=== PATIENT | female | born 1955 | race Caucasian/White ===

== ENCOUNTER → 2017-12-09 | Outpatient (CLI) | payer BC ==
[~2017-12-09] MED LIST: CHILDREN'S ASPI81 M1 PO; FAMCYCLOVIR 50500 M1 PO; GEMFIBROZIL 60600 MG PO; IBUPROFEN 800800 M1 PO; LOVASTATIN 20 M20 MG PO; MINOCYCLINE HC100 M2 PO; SKELAXIN 800 M800 M1 PO; XANAX 0.25 MG0.25 MG PO
[2017-12-09 10:25] LABS: HEMATOCRIT 39.4 % (37.0-47.0); HEMOGLOBIN 13.3 gm/dL (12.0-15.0); MCH 31.8 pg (26.0-34.0); MCHC 33.9 g/dL (28.0-37.0); MPV 6.9 fl. (7.2-11.1); RBC 4.19 mil/uL (4.20-5.00); RDW-CV 13.8 % (10.5-14.5); WBC 6.5 thou/uL (4.0-11.0)
[2017-12-09 10:49] LABS: BF RBC 1961 /mm3; TOTAL CELL COUNT 441 /mm3
[2017-12-09 10:52] LABS: CLARITY SLIGHTLY HAZY; COLOR YELLOW; SOURCE R KNEE; TOTAL VOLUME 20 ml
[2017-12-09 10:55] LABS: BF LYMPHOCYTES 83 %; BF MONOCYTES 4 %; BF POLYS 13 %; BF TISSUE 5 /100 WBC
[2017-12-09 11:23] LABS: SOURCE R KNEE
--- NOTE | 2017-12-09 13:15 | S ---
[place] [address] SURGICAL PATH RPT PROCEDURE Name: PASCALE CABRERA Room: [facility].Kortney.#: [id number] Admission: 12/09/17 Date of : 55 Discharge: Report #: [id number] Path Case #: [id number] PATHOLOGY REPORT COLLECTION DATE: 12/09/2017 RECEIVED DATE: 12/09/2017 SUBMITTING PHYS: Dr. Meng Miguel OTHER PHYS: Dr. Alma Rosa Curry SPECIMEN(S) RECEIVED: A.Right knee fluid * * * * * * * * * * * * FINAL DIAGNOSIS: Right knee fluid: - No pathologic crystals identified. (DAVID:keith; 12/09/2017) PATHOLOGIST: Jose Lae M.D. REPORT ELECTRONICALLY SIGNED BY: Jose Lea M.D. DATE/TIME: 12/09/2017 12:59 * * * * * * * * * * * * GROSS PATHOLOGY: Received for cell count, chemistries, cultures, and crystal analysis is approximately 20 cc of slightly hazy yellow fluid in a syringe labeled, "Pascale Cabrera, RT knee". For crystal analysis, a WetPrep is prepared and subsequently examined using cross polarized microscopy. (DAVID:keith; 12/09/2017) CLINICAL HISTORY: None Provided INITIAL CPT CODE(S): A; 03117 Professional services performed [place] [address] Technical services performed by [facility] at [address] [place] [address]., [address] [address]. [facility] [address] [place] [address] SURGICAL PATH RPT PROCEDURE Name: PASCALE CABRERA [id number] Admission: 12/09/17 Date of : 55 Discharge: Report #: [id number] Path Case #: [id number] [address] PHONE: [phone] DIRECTOR: Pedro Virk M.D. * * * END OF REPORT * * *
[2017-12-10 08:47] LABS: SOURCE RIGHT KNEE
[2017-12-10 11:12] LABS: BODY FLUID PROTEIN 4.2 g/dL (())
[2017-12-11 09:08] LABS: ANA INTERPRETATION Negative (Negative)
== END ==
LOC: M.LAB 09:59
PROVIDERS: Orthopaedic Surgery
DX: B99.9 Unspecified infectious disease (principal)

== ENCOUNTER 2019-10-04 18:36 | Emergency (ER) | payer BC ==
[~2019-10-04] VITALS: Ht 172.7 cm; Wt 90.7 kg
[2019-10-04] MEDS ORDERED: [UNRECOGNIZED DRUG - OTHER] (18:51)
[2019-10-04 19:51] LABS: ABSOLUTE EOSINOPHILS 0.1 thou/uL (0.0-0.7); ABSOLUTE LYMPHOCYTES 3.5 thou/uL (0.8-5.3); ABSOLUTE MONOCYTES 0.6 thou/uL (0.0-1.2); BASOPHILS 0.3 %; EOSINOPHILS 1.3 %; HEMATOCRIT 36.6 % (37.0-47.0); HEMOGLOBIN 12.8 gm/dL (12.0-15.0); LYMPHOCYTES 42.3 %; MCH 32.4 pg (26.0-34.0); MCV 92.7 fL (80.0-100.0); MONOCYTES 7.5 %; MPV 7.1 fl. (7.2-11.1); NUCLEATED RBCS 0 /100WBC; PLATELET COUNT* 294 thou/uL (150-400); POLYS 48.6 %; RBC 3.95 mil/uL (4.20-5.00); WBC 8.2 thou/uL (4.0-11.0)
[2019-10-04 20:05] LABS: INR 0.9; PROTIME 9.6 Seconds (9.20-11.50)
[2019-10-04 20:12] LABS: CALCIUM 8.5 mg/dL (8.5-10.1); CREATININE 0.8 mg/dL (0.6-1.3); POTASSIUM 3.9 mmol/L (3.5-5.1)
[2019-10-04 20:16] LABS: ALBUMIN 3.7 g/dL (3.4-5.0); TOTAL BILIRUBIN 0.2 mg/dL (<0.1-1.0); TOTAL PROTEIN 7.1 g/dL (6.4-8.2)
[2019-10-04 23:17] VITALS: BP 161/59
--- NOTE | 2019-10-05 10:36 | EKG ---
[place] [address] ELECTROCARDIOGRAM REPORT Name: PASCALE CABRERA [facility] [id number] Admission: 10/04/19 Attend Phys: Discharge: 10/04/19 Date of : 55 Report #: [id number] THIS REPORT FOR: //name// [facility] ED Test Date: 2019-10-04 Test Time: 18:45:48 Pat Name: PASCALE CABRERA Department: Room: Gender: F Design Assistant: : 1955 Requested By: Jacky Hardy Order Number: [id number] : Rony Lin Measurements Intervals [place] Rate: 75 P: 66 WI: 176 QRS: 52 QRSD: 92 T: 47 QT: 375 QTc: 419 Interpretive Statements Sinus rhythm Compared to ECG 08/26/2017 08:31:38 No significant changes Electronically Signed On 10-05-2019 10:36:37 [employer]PONDENT by Rony Lin [email or web address] <ELECTRONICALLY SIGNED> By: Rony Lin MD, [facility] 10/05/19 1036 [id number] 1845 Rony Lin MD, FACC /EPI
== END 2019-10-04 23:19 | disposition home or self-care (01) ==
LOC: M.ERS 18:36
PROVIDERS: Emergency Medicine
DX: R07.89 Other chest pain (principal); F41.9 Anxiety disorder, unspecified; E78.00 Pure hypercholesterolemia, unspecified; F17.210 Nicotine dependence, cigarettes, uncomplicated; Z90.49 Acquired absence of other specified parts of digestive tract; Z90.89 Acquired absence of other organs; Z90.710 Acquired absence of both cervix and uterus